=== PATIENT | female | born 1965 | race Caucasian/White ===

== ENCOUNTER → 2017-01-31 | Outpatient (CLI) | payer OTHER | LOC: FIMAGING 14:53 | PROVIDERS: ATTEND Obstetrics & Gynecology | DX: Z12.31 Encounter for screening mammogram for malignant neoplasm of breast (principal) | CPT/HCPCS: G0202 ==

== ENCOUNTER 2017-11-01 05:50 | Day surgery (SDC) | payer OTHER ==
--- NOTE | 2017-10-31 22:39 | GHP ---
[f rep st] PREOP HISTORY AND PHYSICAL DATE OF ADMISSION: 11/01/2017 DATE OF PROCEDURE: Slated for 11/01/2017, on the gynecology service. PREOPERATIVE HISTORY: The patient is a 52-year-old G0, P0, white female, who has been on hormone rep lacement for years, and had irregular bleeding in 2016 after adjustment of hormones. The patient had an ultrasound to ensure that the lining was appropriate as the patient is on bioidentical compounded replacement. The ultrasound was performed in August 2017, at which time there was a thickening in th e endocervical canal 11 x 12 mm in size. This was hyperechoic and hypervascular and appeared to have a vascular stalk consistent with a polyp. The endometrial lining was thin at 2.4 mm. The patient w as advised of this thickness in the endocervical area, and essentially wants confirmation of benign t issue, and wants to proceed with definitive management of hysteroscopy with removal of this area for pathology evaluation. The patient has been advised as to the risks and benefits of hysteroscopy and polypectomy, and the consent form signed. PAST MEDICAL HISTORY: The patient diagnosed with lichen planus and underwent 90 days of an anti-infl ammatory program on 9 different supplements. Has had good control of symptoms. Menopausal since . PAST SURGICAL HISTORY: Knee surgery in June 2000. 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 Menarche at age 12 with normal menstrual interva ls, which resolved in 2012. Patient had moderate dysmenorrhea and heavy flow for 1-2 days of her cyc le. The patient with no history of sexually transmitted diseases. ALLERGY: Cipro. CURRENT MEDICATIONS: Hormone replacement with bioidentical hormones with BiEst pill 0.75 mg/0.75, pr ogesterone 100 mg pill nightly, testosterone pellet inserted every 11 weeks. The patient also uses v itamin D supplements and other exid-oum-jxidtuo supplements. No herb usage. SOCIAL HISTORY: The patient is , lives with her . The patient works account executive metalworking. She m aintains regular cardiovascular exercise. Is a nonsmoker. Only social alcohol. No illicit drug use . REVIEW OF SYSTEMS: The patient has not had any vaginal bleeding. The patient has reported an increa sed vaginal odor for several months in the early part of 2017; however, this spontaneously resolved i september. Patient has no vaginal burning. The patient does report difficulty completely emptying her bladder; however, denies any dysuria or urgency. The patient occasionally has heart palpitations an d was evaluated for this on an urgent care visit in May 2016. She had a full cardiac workup and saw Cardiology; however, they felt nothing needed further evaluation. PHYSICAL EXAMINATION: GENERAL: At the time of preop, the patient is a well-developed, well-nourishe d white female in no physical distress. VITAL SIGNS: The patient's height is 65 inches, weight 143 pounds, blood pressure 104/68. The patient is clinically afebrile. LUNGS: Clear to auscultation bi laterally. CARDIOVASCULAR: Regular rate and rhythm. HEENT: Shows no thyromegaly, no adenopathy, a nd the oropharynx is clear. ABDOMEN: Soft and nontender. VAGINAL: Not repeated as it was performe d in August and revealed a normal-appearing cervix with a very small external polyp that was nonfriabl e. There is no vaginal discharge noted. Bimanual exam showed a small uterus, mobile and nontender, and no adnexal masses. EXTREMITIES: Nontender, no edema. RADIOLOGIC EVALUATION: Ultrasound of the uterus: 6.7 x 3 x 3 cm with an endometrial thickness of 2. 4 mm. There is a fibroid, posterior, submucosal that is 0.75 cm. In the endocervical area there is a hyperechoic area 11 x 12 mm that is hypervascular and appears to have a stalk consistent with a nasreen yp. The ovaries appeared normal bilaterally. Last Pap smear showed a negative Pap in February 2016 with negative HPV testing in 2014. ASSESSMENT: Thickened endocervical area consistent with a polyp, on bioidentical hormone replacement . PLAN: We will proceed with hysteroscopy and removal of the tissue for pathologic confirmation that t his is benign. Patient counseled, and the consent form signed. The patient will receive preoperativ e antibiotics and have on SCDs for DVT prophylaxis. Surgery scheduled for 11/01/2017. /[id number]/MODL
[2017-11-01] MEDS ORDERED: ceFAZolin 2 GM/SWFI 2 GM/20 ML SYR IVP ONE (06:05)
[2017-11-01] MEDS ORDERED: LIDOCAINE 1% 2 ML INJ ID PRN (06:08)
[2017-11-01] MEDS ORDERED: LR 1,000 ML IV ONE (06:08)
[2017-11-01] MEDS ORDERED: ceFAZolin 2 GM/DEXTROSE 100 ML IV ONE (06:15)
[2017-11-01] MEDS ORDERED: SILVER NITRATE APPLICATOR 1 APPL TP ONE ×2 (07:03→07:04)
[2017-11-01] MEDS ORDERED: MIDAZOLAM 2 MG/2 ML VIAL IVP ONE (07:05)
--- NOTE | 2017-11-01 07:07 | PDANEPAE ---
ANE Past Medical History - Cardiovascular History Hx Hypertension: No Hx Arrhythmias: No Hx Chest Pain: No Hx Coronary Artery / Peripheral Vascular Disease: No Hx CHF / Valvular Disease: No Hx Palpitations: No - Pulmonary History Hx COPD: No Hx Asthma/Reactive Airway Disease: No Hx Recent Upper Respiratory Infection: No Hx Oxygen in Use at Home: No Hx Sleep Apnea: No Sleep Apnea Screening Result - Last Documented: Negative - Neurologic History Hx Cerebrovascular Accident: No Hx Seizures: No Hx Dementia: No - Endocrine History Hx Diabetes: No Obesity: no - Renal History Hx Renal Disorders: No - Liver History Hx Hepatic Disorders: No - Neurological & Psychiatric Hx Hx Neurological and Psychiatric Disorders: No - Cancer History Hx Cancer: No - Congenital Disorder History Hx Congenital Disorders: No - GI History GERD: no Hx Gastrointestinal Disorders: No - Chronic Pain History Chronic Pain: No - Surgical History Prior Surgeries: LT KNEE SCOPE 2011 ANE Review of Systems Review of Systems: - Exercise capacity METS (RN): 6 METS ANE Patient History - Allergies Allergies/Adverse Reactions: ciprofloxacin [From Cipro] Allergy (Mild, Verified 05/22/16 12:55) Rash ciprofloxacin HCl [From Cipro] Allergy (Mild, Verified 05/22/16 12:55) Rash - Home Medications Home Medications: Herbals/Supplements -Info Only DAILY 10/25/17 [Last Taken Unknown] Hrt DAILY 10/25/17 [Last Taken Unknown] - NPO status NPO Since - Liquids (Date): 11/01/17 NPO Since - Liquids (Time): 01:00 NPO Since - Solids (Date): 10/31/17 NPO Since - Solids (Time): 18:00 - Anes Hx Anes Hx: no prior problems - Smoking Hx Smoking Status: Never smoked ANE Labs/Vital Signs - Vital Signs Blood Pressure: 102/67 Heart Rate: 58 Respiratory Rate: 15 O2 Sat (%): 96 Height: 165.1 cm Weight: 62.596 kg ANE Physical Exam - Airway Neck exam: FROM Mallampati Score: Class 1 Mouth exam: normal dental/mouth exam - Pulmonary Pulmonary: no respiratory distress, no rales or rhonchi, clear to auscultation - Cardiovascular Cardiovascular: regular rate and rhythym, no murmur, rub, or gallop - ASA Status ASA Status: I ANE Anesthesia Plan Anesthesia Plan: GA w LMA
[2017-11-01] MEDS ORDERED: fentaNYL 100 MCG/2 ML INJ ONE ×2 (07:18→08:53)
[2017-11-01] MEDS ORDERED: PROPOFOL 200 MG/20 ML VIAL ONE (07:18)
[2017-11-01] MEDS ORDERED: DEXAMETHASONE 4 MG/ML VIAL ONE ×2 (07:20)
[2017-11-01] MEDS ORDERED: ONDANSETRON 4 MG/2 ML VIAL ONE (07:20)
[2017-11-01] MEDS ORDERED: LIDOCAINE 2% 5 ML SDV ONE (07:20)
[2017-11-01] MEDS ORDERED: KETOROLAC 30 MG/1 ML SDV ONE (07:21)
[2017-11-01] MEDS ORDERED: MEPERIDINE 25 MG/0.5 ML AMP IVP PRN (07:28)
[2017-11-01] MEDS ORDERED: ONDANSETRON 4 MG/2 ML VIAL IVP PRN (07:28)
[2017-11-01] MEDS ORDERED: ACETAMINOPHEN 500 MG TAB PO PRN (07:28)
[2017-11-01] MEDS ORDERED: HYDROCODONE/APAP 5/325 TAB PO PRN (07:28)
[2017-11-01] MEDS ORDERED: PROMETHAZINE HCL 25 MG/ML INJ IVP PRN (07:28)
[2017-11-01] MEDS ORDERED: LR 500 ML IV PRN (07:28)
[2017-11-01] MEDS ORDERED: NALOXONE HCL 0.4 MG/ML INJ IVP PRN (07:28)
--- NOTE | 2017-11-01 07:33 | PDHPUP ---
History & Physical Update H&P update statement: This history and physical update is based on an assessment of the patient which was completed after admission or registration (within 24 hours), but prior to the surgery/procedure. H&P update: no change in patient's condition since H&P completed
[2017-11-01] MEDS ORDERED: ONDANSETRON DISINTEGRATING 4 MG TAB PO PRN (08:33)
[2017-11-01] MEDS ORDERED: GLYCOPYRROLATE 0.2 MG/1 ML VIAL ONE (08:38)
--- NOTE | 2017-11-01 08:39 | POSTOPPROG ---
Post Op Note Date of Operation: 11/01/17 Surgeon: Naomy Huynh Anesthesiologist: Jonathan Estrada MD Anesthesia: Other (Specify) (Mask general) Pre-op Diagnosis: Thickened endometrium Post-op Diagnosis: same, endocervical polyp Indication: DIE SETTER months ago on bioidentical HRT and u/s showed [id number] in cx Procedure: Hysteroscopic polypectomy Findings: thin endometrium and nl ostea/cavity and polyp noted in cx, def 160ml Inf/Abcess present in the surg proc area at time of surgery?: No Depth: Organ Space EBL: Minimal Complications: none Specimen(s): endocervical polyp
--- NOTE | 2017-11-01 08:50 | POSTANESTH ---
Post Anesthetic Evaluation Cardiovascular Status: Other, See Comment (Bradycardic on arrival (30/min), so glycopyrrolate given. Resolved immediately.) Respiratory Status: Normal, Stable, Similar to Pre-op Cond. Level of Consciousness/Mental Status: Can Participate in Eval, Mildly Sleepy, Arousable Pain Control: Adequate, Prn Tx Ordered Nausea/Vomiting Control: Adequate, Prn Tx Ordered Complications Possibly Related to Anesthesia: None Noted
[2017-11-01] MEDS: fentaNYL 100 MCG/2 ML INJ IVP PRN ×2 (08:54→09:05)
[2017-11-01 11:30] VITALS: BP 92/62
== END 2017-11-01 11:15 | disposition home or self-care (01) ==
LOC: FSGY 05:50
PROVIDERS: ATTEND Obstetrics & Gynecology
PROC: 0UDB8ZX Extraction of Endometrium, Via Natural or Artificial Opening Endoscopic, Diagnostic (ICD-10-PCS; principal; 2017-11-01 07:15)
DX: N84.0 Polyp of corpus uteri (principal); R93.8 Abnormal findings on diagnostic imaging of other specified body structures; Z79.890 Hormone replacement therapy
CPT/HCPCS: J0690; J1100; J1885; J2250; J2405; J2704; J3010

== ENCOUNTER → 2018-03-10 | Outpatient (CLI) | payer OTHER | LOC: FIMAGING 14:23 | PROVIDERS: ATTEND Obstetrics & Gynecology | DX: Z12.31 Encounter for screening mammogram for malignant neoplasm of breast (principal) ==

== ENCOUNTER → 2018-05-07 | Outpatient (CLI) | payer OTHER | LOC: FIMAGING 08:42 | PROVIDERS: ATTEND Nurse Practitioner Women's Health | DX: N63.10 Unspecified lump in the right breast, unspecified quadrant (principal) ==